=== PATIENT | male | born 1950 | race Two or more races ===

== ENCOUNTER 2017-01-29 15:42 | Emergency (ER) | payer MEDICARE, OTHER ==
[~2017-01-29] VITALS: Ht 170.2 cm; Wt 77.1 kg
[~2017-01-29 15:42] MED LIST: IBUPROFEN600 MG ORAL; VIBRAMYCIN100 MG ORAL
--- NOTE | 2017-01-29 16:36 | Emergency Room Report ---
History of Present Illness General Chief Complaint: Sore Throat Source: Patient Present Illness HPI Patient complains of sinus congestion and pressure for 2 weeks. Says she had a cold that resolved but now has right-sided facial pressure associated with nasal congestion, and dry cough due to postnasal drip. Took Tylenol w/o improvement of sxs. Pt also states she has sore throat that over the past 4 days which resolved today. Denies any current n/v/f/c/d, abd pain, back pain, neck pain, photophobia, phonophobia, CP, SOB or headache. Allergies: Coded Allergies: No Known Allergies (Unverified , 05/31/16) Patient History Past Medical History: see triage record Pertinent Family History: none Reviewed Nursing Documentation: PMH: Agreed, PSxH: Agreed Nursing Documentation-PMH Past Medical History: No History, Except For Hx Hypertension: Yes Hx Diabetes: Yes Review of Systems All Other Systems: negative except mentioned in HPI Physical Exam Vital Signs Date Time Temp Pulse Resp B/P Pulse Ox O2 Delivery O2 Flow Rate FiO2 01/29/17 15:56 98.2 84 16 147/84 100 Room Air Sp02 EP Interpretation: reviewed, normal General Appearance: normal inspection Head: normocephalic, atraumatic Eyes: bilateral eye PERRL, bilateral eye normal inspection ENT: hearing grossly normal, normal pharynx, no angioedema, normal voice, TMs + canals normal, moist mucus membranes, nasal congestion, other - Tubrinates red and swollen. Bilateral maxillary sinus tenderness Neck: full range of motion, supple/symm/no masses Respiratory: chest non-tender, lungs clear, normal breath sounds, speaking full sentences Cardiovascular #1: regular rate, rhythm, no edema Neurologic: alert, oriented x3, responsive, motor strength/tone normal, sensory intact, speech normal Psychiatric: judgement/insight normal, memory normal, mood/affect normal, no suicidal/homicidal ideation Skin: normal color, no rash, warm/dry, well hydrated Lymphatic: no adenopathy Medical Decision Making PA Attestation Dr. Simmons is my supervising physician with whom patient management has been discussed with. Diagnostic Impression: Primary Impression: Sinusitis, acute maxillary Qualified Codes: J01.00 - Acute maxillary sinusitis, unspecified ER Course Pt. presents to the ED c/o of cough and congestion Ddx considered but are not limited to bronchitis, pneumonia, viral upper respiratory tract infection Vital signs: are WNL, pt. is afebrile H&PE are most consistent with sinusitis ORDERS: none required at this time, the diagnosis is clinical ED INTERVENTIONS: None required at this time. DISCHARGE: At this time pt. is stable for d/c to home. Will provide printed patient care instructions, and any necessary prescriptions. Care plan and follow up instructions have been discussed with the patient prior to discharge. Last Vital Signs Date Time Temp Pulse Resp B/P Pulse Ox O2 Delivery O2 Flow Rate FiO2 01/29/17 15:56 98.2 84 16 147/84 100 Room Air Disposition: HOME, SELF-CARE Condition: Stable Scripts Cetirizine Hcl* (ZYRTEC*) 10 Mg Tablet 10 MG ORAL DAILY, #14 TAB 0 Refills Prov: HERIBERTO POLK.A. 01/29/17 Fluticasone Propionate (Flonase Allergy Relief) 9.9 Ml Emerson.susp 2 SPRAYS NS DAILY for 7 Days, #10 ML Prov: HERIBERTO POLK.A. 01/29/17 Amoxicillin/Potassium Clav 875-125* (AUGMENTIN 875-125 TABLET*) 1 Each Tablet 1 TAB ORAL TWICE A DAY, #20 TAB Prov: HERIBERTO POLK.A. 01/29/17 Patient Instructions: Sinusitis, Adult Additional Instructions: Take medication as directed. Patient advised that most of the time, symptoms start to improve in 7 to 10 days. Patient should return to clinic if their symptoms last more than 10 days, or if your symptoms get better at first but then get worse. Patient instructed to take an [id number] pain reliever to reduce the pain, and to rinse your nose and sinuses with salt water a few times a day. Patient advised to NOT take an antihistamine for sinusitis. Go to the ER if you experience any: fever higher than 102.5, sudden and severe pain in the face and head, trouble seeing or seeing double, trouble thinking clearly, swelling or redness around one or both eyes, or trouble breathing or a stiff neck. HERIBERTO POLK Jan 29, 2017 16:36
[2017-01-29] MEDS ORDERED: ZYRTEC10 MG ORAL (16:38)
[2017-01-29] MEDS ORDERED: AUGMENTIN 875-1 EAC1 ORAL (16:38)
[2017-01-29] MEDS ORDERED: FLONASE ALLERG9.9 ML NS (16:38)
[2017-01-29 16:58] VITALS: BP 147/84
== END 2017-01-29 17:04 | disposition home or self-care (01) ==
LOC: EMR 16:41
DX: J01.00 Acute maxillary sinusitis, unspecified (principal); E11.9 Type 2 diabetes mellitus without complications; I10 Essential (primary) hypertension
CPT/HCPCS: 99284